=== PATIENT | male | born 1965 | race Caucasian/White ===

== ENCOUNTER 2018-05-08 16:03 | Emergency (ER) | payer OTHER ==
[2018-05-08 16:11] VITALS: BP 128/75; RESP 18; TEMP 98.1
[2018-05-08] MEDS ORDERED: ACETAMINOPHEN TAB 500 MG TAB PO STA (16:32)
--- NOTE | 2018-05-08 16:39 | ED ---
General Adult HPI - General Chief complaint: Neck Pain/Injury Stated complaint: BACK PAIN/ NECK PAIN Time Seen by Provider: 05/08/18 16:12 Source: patient, RN notes reviewed Mode of arrival: ambulatory Limitations: no limitations - History of Present Illness Initial comments: Patient is a 52-year-old male who presents the emergency department with complaint of left sided neck and upper back pain for 5 days. He reports that he has had this kind of pain in the past but it has always gone away on its own. He reports that he is right handed. 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 He reports that he has not tried to take any pain medication or tried anything at home to relieve his symptoms. He reports that he has never been seen for this chronic problem before. Patient denies any recent trauma, fever, chills, shortness of breath, chest pain, abdominal pain, nausea or vomiting, numbness or tingling, headaches or visual changes, or any other complaints. - Related Data Previous Rx's Medication Instructions Recorded Cyclobenzaprine [Flexeril] 1 - 2 tab PO TID #20 tablet 05/08/18 Allergies Allergy/AdvReac Type Severity Reaction Status Date / Time ibuprofen Allergy Swelling Verified 05/08/18 16:11 Review of Systems ROS Statement: Those systems with pertinent positive or pertinent negative responses have been documented in the HPI. ROS Other: All systems not noted in ROS Statement are negative. Past Medical History Past Medical History: No Reported History History of Any Multi-Drug Resistant Organisms: None Reported Past Surgical History: Orthopedic Surgery Additional Past Surgical History / Comment(s): right knee surgery Past Psychological History: No Psychological Hx Reported Smoking Status: Never smoker Past Alcohol Use History: None Reported Past Drug Use History: None Reported General Exam Limitations: no limitations General appearance: alert, in no apparent distress Head exam: Present: atraumatic, normocephalic Eye exam: Present: normal appearance, PERRL ENT exam: Present: normal exam, normal oropharynx Neck exam: Present: normal inspection, tenderness (Tender to palpation over the left neck musculature and left upper back.) Respiratory exam: Present: normal lung sounds bilaterally Cardiovascular Exam: Present: regular rate, normal rhythm, other (Radial pulses are palpable and strong bilaterally.) Extremities exam: Present: normal inspection, full ROM, normal capillary refill Back exam: Present: normal inspection Neurological exam: Present: alert, oriented X3 Psychiatric exam: Present: normal affect, normal mood Skin exam: Present: warm, dry Course Vital Signs 05/08/18 05/08/18 16:08 17:52 Temperature 98.1 F Pulse Rate 108 H 72 Respiratory 18 Rate Blood Pressure 128/75 O2 Sat by Pulse 97 Oximetry Medical Decision Making - Medical Decision Making Patient is a 52-year-old male with left sided neck and upper back pain over the trapezius musculature that has lasted 5 days. Patient does not want any pain medication at this time. Cervical spine x-ray reveals mild to moderate disc space narrowing with mild to moderate anterior spurring at C5 to C6 level. It also reveals that there is mild disc space narrowing C6 to C7 and C7 to T1 levels. Will discharge him with prescription for Flexeril. Case discussed in detail with attending physician Dr. Crawford. Disposition Clinical Impression: Strain of neck muscle Disposition: HOME SELF-CARE Condition: Good Instructions: Cervical Strain (ED) Additional Instructions: Follow-up with PCP in 2 days. Return to emergency department if symptoms worsen or any other concerns. Prescriptions: Cyclobenzaprine [Flexeril] 1 - 2 tab PO TID #20 tablet Is patient prescribed a controlled substance at d/c from ED?: No Referrals: None,Stated [Primary Care Provider] - 1-2 days Time of Disposition: 18:16
--- NOTE | 2018-05-08 17:06 | XR ---
EXAMINATION TYPE: XR cervical spine comp DATE OF EXAM: 05/08/2018 TECHNIQUE: Frontal, lateral, oblique, and open mouth view of the cervical spine are obtained. HISTORY: pain neck pain into left shoulder and upper black for 5 days. COMPARISON: None FINDINGS: The cervical spine is visualized in its entirety from C1 thru the top of T1 level, it is s traightening in alignment without evidence of acute fracture or dislocation. The pre-vertebral soft tissue appears within normal limits. The C1-C2 articulation is within normal limits on the open mout h view. Vertebral body heights are maintained. There is [id number] disc space narrowing with m ild to moderate anterior spurring C5-C6 level. There is mild disc space narrowing C6-C7 and C7-T1 lev els. The oblique images are within normal limits. Overlying soft tissue is unremarkable. IMPRESSION: As Above.
[2018-05-08 17:52] VITALS: PULSE 72
== END 2018-05-08 18:29 | disposition home or self-care (01) ==
LOC: EC 16:03
DX: S16.1XXA Strain of muscle, fascia and tendon at neck level, initial encounter (principal); M48.02 Spinal stenosis, cervical region; M48.03 Spinal stenosis, cervicothoracic region; Z88.6 Allergy status to analgesic agent; X58.XXXA Exposure to other specified factors, initial encounter
CPT/HCPCS: 72050; 99283

== ENCOUNTER 2022-01-25 02:30 | Emergency (ER) | payer BC ==
[2022-01-25 02:36] VITALS: RESP 20; TEMP 98.2
[2022-01-25] MEDS ORDERED: SODIUM CHLORIDE 0.9% 1,000 ML IV STA (03:06)
[2022-01-25] MEDS ORDERED: ONDANSETRON 4 MG/2 ML VIAL IVP STA (03:06)
[2022-01-25] MEDS ORDERED: MORPHINE SULFATE 4 MG/ML SYRINGE IVP STA (03:06)
--- NOTE | 2022-01-25 03:13 | ED ---
Abdominal Pain HPI - General Chief Complaint: Abdominal Pain Stated Complaint: Abdominal pain Time Seen by Provider: 01/25/22 02:56 Source: patient Mode of arrival: ambulatory Limitations: no limitations - Related Data Previous Rx's Medication Instructions Recorded Cyclobenzaprine [Flexeril] 1 - 2 tab PO TID #20 tablet 05/08/18 Allergies Allergy/AdvReac Type Severity Reaction Status Date / Time ibuprofen Allergy Swelling Verified 01/25/22 02:35 Review of Systems ROS Statement: Those systems with pertinent positive or pertinent negative responses have been documented in the HPI. ROS Other: All systems not noted in ROS Statement are negative. Past Medical History Past Medical History: No Reported History History of Any Multi-Drug Resistant Organisms: None Reported Past Surgical History: Orthopedic Surgery Additional Past Surgical History / Comment(s): right knee surgery Past Psychological History: No Psychological Hx Reported Smoking Status: Never smoker Past Alcohol Use History: None Reported Past Drug Use History: None Reported General Exam Limitations: no limitations Course Vital Signs 01/25/22 01/25/22 02:31 04:47 Temperature 98.2 F Pulse Rate 62 71 Respiratory 20 Rate Blood Pressure 121/88 117/88 O2 Sat by Pulse 97 98 Oximetry Medical Decision Making - Lab Data Result diagrams: 01/25/22 03:29 01/25/22 03:29 Lab Results 01/25/22 01/25/22 Range/Units 03:29 03:29 WBC 8.1 (3.8-10.6) k/uL RBC 4.88 (4.30-5.90) m/uL Hgb 14.9 (13.0-17.5) gm/dL Hct 45.7 (39.0-53.0) % MCV 93.5 (80.0-100.0) fL MCH 30.5 (25.0-35.0) pg MCHC 32.7 (31.0-37.0) g/dL RDW 13.7 (11.5-15.5) % Plt Count 149 L (150-450) k/uL MPV 7.8 Neutrophils % 62 % Lymphocytes % 23 % Monocytes % 7 % Eosinophils % 4 % Basophils % 1 % Neutrophils # 5.0 (1.3-7.7) k/uL Lymphocytes # 1.9 (1.0-4.8) k/uL Monocytes # 0.6 (0-1.0) k/uL Eosinophils # 0.3 (0-0.7) k/uL Basophils # 0.1 (0-0.2) k/uL Sodium 139 (137-145) mmol/L Potassium 4.2 (3.5-5.1) mmol/L Chloride 107 (98-107) mmol/L Carbon Dioxide 25 (22-30) mmol/L Anion Gap 7 mmol/L BUN 20 (9-20) mg/dL Creatinine 1.28 H (0.66-1.25) mg/dL Est GFR (CKD-EPI)AfAm 72 (>60 ml/min/1.73 sqM) Est GFR (CKD-EPI)NonAf 63 (>60 ml/min/1.73 sqM) Glucose 109 H (74-99) mg/dL Calcium 9.2 (8.4-10.2) mg/dL Phosphorus 4.6 H (2.5-4.5) mg/dL Magnesium 1.9 (1.6-2.3) mg/dL Total Bilirubin 0.8 (0.2-1.3) mg/dL AST 39 (17-59) U/L ALT 43 (4-49) U/L Alkaline Phosphatase 55 (38-126) U/L Total Protein 7.3 (6.3-8.2) g/dL Albumin 4.1 (3.5-5.0) g/dL Amylase 76 (30-110) U/L Lipase 173 (23-300) U/L Disposition Clinical Impression: Abdominal pain, Constipation Disposition: HOME SELF-CARE Condition: Good Instructions (If sedation given, give patient instructions): Abdominal Pain (ED) Is patient prescribed a controlled substance at d/c from ED?: No Referrals: None,Stated [Primary Care Provider] - 1-2 days
[2022-01-25 03:56] LABS: Basophils # (A) 0.1 k/uL (0-0.2); Basophils % (A) 1 %; Eosinophils # (A) 0.3 k/uL (0-0.7); Eosinophils % (A) 4 %; HCT 45.7 % (39.0-53.0); HGB 14.9 gm/dL (13.0-17.5); Lymphocytes # (A) 1.9 k/uL (1.0-4.8); Lymphocytes % (A) 23 %; MCH 30.5 pg (25.0-35.0); MCHC 32.7 g/dL (31.0-37.0); MCV 93.5 fL (80.0-100.0); Mean Platelet Volume 7.8; Monocytes # (A) 0.6 k/uL (0-1.0); Monocytes % (A) 7 %; Neutrophils % (A) 62 %; Platelet Count 149 k/uL (150-450); RBC 4.88 m/uL (4.30-5.90); RDW 13.7 % (11.5-15.5); WBC 8.1 k/uL (3.8-10.6)
[2022-01-25 04:10] LABS: Albumin 4.1 g/dL (3.5-5.0); Calcium 9.2 mg/dL (8.4-10.2); Magnesium 1.9 mg/dL (1.6-2.3); Phosphorus 4.6 mg/dL (2.5-4.5); Potassium 4.2 mmol/L (3.5-5.1); Total Bilirubin 0.8 mg/dL (0.2-1.3); Total Protein 7.3 g/dL (6.3-8.2)
--- NOTE | 2022-01-25 04:31 | CT ---
EXAMINATION TYPE: CT abdomen pelvis wo con DATE OF EXAM: 01/25/2022 COMPARISON: None HISTORY: ABDOMINAL PAIN X 2 DAYS, ABDOMEN FEELS TIGHT, NOT HAD A NORMAL BOWEL MOVEMENT SINCE THIS PAS T MONDAY. CT DLP: 704 mGycm Automated exposure control for dose reduction was used. Images obtained from the diaphragm to the floor the pelvis with no contrast. The lung bases are clear. No pleural effusion. Heart size is fairly normal. No pericardial effusion. There is 4.3 cm calcified gallstone. There are other smaller calcified gallstones. Liver is intact. T he bile duct are not dilated. There are multiple calcified splenic granulomata. Stomach is intact. No pancreatic mass. There is no adrenal mass. Kidneys are of normal size. No hydronephrosis. Ureters are not dilated. The re is no retroperitoneal adenopathy. There are bilateral renal parapelvic cysts. The bladder distends smoothly. No inguinal hernia. No free fluid in the pelvis. No pelvic mass. Appendix is posterior and appears normal. There is no mesenteric edema. No ascites or free air. No bowel obstruction. The lumbar spine is intact. No compression fracture. The bony pelvis is intact. The hip joints are in tact. IMPRESSION: Normal appendix. No evidence of any significant constipation. Cholelithiasis. No acute abnormality of the abdomen and pelvis.
[2022-01-25 04:48] VITALS: BP 117/88; PULSE 71
[2022-01-25] MEDS ORDERED: SENNOSIDES-DOCUSATE SODIUM 1 EACH TAB PO STA (05:12)
== END 2022-01-25 05:27 | disposition home or self-care (01) ==
LOC: EC 02:30
DX: R10.9 Unspecified abdominal pain (principal); K59.00 Constipation, unspecified; Z88.6 Allergy status to analgesic agent
CPT/HCPCS: 36415; 80053; 82150; 83690; 83735; 84100; 85025; 74176; 99284; 96374; 96375; 96361; J2270; J2405

== ENCOUNTER 2022-09-26 05:52 | Day surgery (SDC) | payer BC ==
[2022-09-21 15:18] VITALS: BMI 29.1
[2022-09-26] MEDS ORDERED: LACTATED RINGERS 1,000 ML IV ONE ×3 (06:30→07:03)
[2022-09-26 07:00] VITALS: TEMP 97.7
[2022-09-26 07:03] LABS: Calcium 8.7 mg/dL (8.4-10.2); Potassium 4.4 mmol/L (3.5-5.1)
[2022-09-26] MEDS ORDERED: PROPOFOL 10 MG/ML 20 ML VIAL IV ONE (07:10)
[2022-09-26] MEDS ORDERED: LIDOCAINE 2% INJ 20 MG/ML (2 ML VIAL) ONE (07:10)
[2022-09-26] MEDS ORDERED: BENZOCAINE SPRAY 1 CAN TOPICAL ONE (07:16)
--- NOTE | 2022-09-26 07:41 | P.PCN ---
Date of Procedure: 09/26/22 Description of Procedure: Indication: Atrial fibrillation Procedure Description: After explaining the procedure to the patient, it's risk and complications, blood pressure, heart rate and O2 saturation were monitored. The throat was sprayed with Cetacaine. Patient received sedation per anesthesia department. The probe was introduced into the esophagus without difficulty. Images were obtained. Following that, the probe was removed. There was no immediate complication. Findings: Left atrial size is dilated, left atrial appendage is normal. Left ventricle systolic function is moderately impaired with an ejection fraction of 35-40% with global hypokinesis. The aortic valve, mitral valve and tricuspid valve appears to be normal. Descending thoracic aorta appears to be normal. No pericardial effusion was noted. Contrast bubble study revealed late shunting across a patent foramen ovale. Doppler: Pulse wave and color Doppler were obtained, an revealed moderate to severe eccentric mitral regurgitation with mild to moderate tricuspid regurgitation. There was no shunting by color Doppler study Conclusion: 1. Dilated left atrium with normal appearance of the left atrial appendage 2. Normal in size with moderate global hypokinesis 3. moderate severe eccentric mitral regurgitation 4. [id number] tricuspid regurgitation 5. Late shunting across the intra-atrial septum with contrast bubble study through PFO Cardioversion: After performing a JONNIE and obtaining sedated state synchronized biphasic cardioversion using 150 J was performed with orthodoxy of sinus mechanism.
[2022-09-26] MEDS ORDERED: SODIUM CHLORIDE 0.9% 1,000 ML IV SCH (07:45)
[2022-09-26 07:55] VITALS: RESP 16
[2022-09-26] MEDS ORDERED: METOPROLOL TARTRATE 25 MG TAB PO SCH (09:00)
[2022-09-26] MEDS ORDERED: lisinopriL 5 MG TAB PO SCH (09:00)
[2022-09-26] MEDS ORDERED: RIVAROXABAN 20 MG TAB PO SCH (09:00)
[2022-09-26 09:15] VITALS: BP 109/89; PULSE 109
== END 2022-09-26 09:16 | disposition home or self-care (01) ==
LOC: OR 05:52
PROVIDERS: ATTEND Internal Medicine Interventional Cardiology
DX: I48.91 Unspecified atrial fibrillation (principal); I08.1 Rheumatic disorders of both mitral and tricuspid valves; Q21.12 Patent foramen ovale
CPT/HCPCS: 93312; 93320; 93325; 92960; 80048; J2704; J2001